=== PATIENT | male | born 1990 | race Caucasian/White ===

== ENCOUNTER 2016-10-10 09:13 | Emergency (ER) | payer MEDICAID, OTHER ==
[~2016-10-10] VITALS: Ht 188 cm; Wt 100.0 kg
[2016-10-10 09:14] VITALS: BP 133/74; PULSE 68; RESP 20; TEMP 98.4; O2SAT 97
--- NOTE | 2016-10-10 09:24 | PD ---
HPI Chief Complaint: Skin Problem Time Seen by Provider: 09:23 Travel History International Travel<30 days: No Contact w/Intl Traveler<30days: No Traveled to known affect area: No History of Present Illness HPI 25-year-old male with history of seizure disorder and history of MRSA , presents to the emergency Department with multiple sores and question abscess. Patient states she's been working at the [employer] last several days has developed some small tender pimple-like lesions to both lower extremities, as well as a questionable recurrent abscess to the upper buttock region. Patient has history of this in the past. He states he's had to have the cyst on his buttock drained in the past. Patient denies fever, chills, or other constitutional symptoms. Pain on the lesions is described as burning. He rates it as a 6/10. Patient has no known drug allergies. [facility] Social History Alcohol Use: No Tobacco Use: Yes Substance Use: No Allergies-Medications (Allergen,Severity, Reaction): Coded Allergies: No Known Allergies (Unverified , 10/10/16) Reported Meds & Prescriptions Reported Meds & Active Scripts Active Reported Keppra (Levetiracetam) 500 Mg Tab 500 Mg PO BID Review of Systems Except as stated in HPI: all other systems reviewed are Neg General / Constitutional: No: Fever Eyes: No: Visual changes HENT: No: Headaches Cardiovascular: No: Chest Pain or Discomfort Respiratory: No: Shortness of Breath Gastrointestinal: No: Abdominal Pain Genitourinary: No: Dysuria Musculoskeletal: No: Pain Skin: Positive Lesions (see history present illness.), No Rash Neurologic: No: Weakness Psychiatric: No: Depression Endocrine: No: Polydipsia Hematologic/Lymphatic: No: Easy Bruising Physical Exam Narrative GENERAL: Patient is in no acute distress. SKIN: Warm and dry. Normal color. Normal turgor. Patient has multiple small apparent folliculitis type lesions to the lower extremities, the largest one on the left lateral bravo which has an area of pus topically. No nasal lesions should have obvious abscesses apparent at this time. Patient also has a tender erythematous indurated area to the top of the left medial buttock consistent with recurrent pilonidal cyst. He states this is not is tenderness over the of the lesions on his legs. HEAD: Atraumatic. Normocephalic. EYES: Pupils equal and round. No scleral icterus. No injection or drainage. ENT: No nasal bleeding or discharge. Mucous membranes pink and moist. Pharynx is clear. Airway is patent. NECK: Trachea midline. Supple and nontender. CARDIOVASCULAR: Regular rate and rhythm. RESPIRATORY: No accessory muscle use. Clear to auscultation. Breath sounds equal bilaterally. MUSCULOSKELETAL: Extremities without clubbing, cyanosis, or edema. No obvious deformities. NEUROLOGICAL: Awake and alert. No obvious cranial nerve deficits. Motor grossly within normal limits. Five out of 5 muscle strength in the arms and legs. Normal speech. PSYCHIATRIC: Appropriate mood and affect; insight and judgment normal. Data Data Last Documented VS Vital Signs Date Time Temp Pulse Resp B/P Pulse Ox O2 Delivery O2 Flow Rate FiO2 10/10/16 09:14 98.4 68 20 133/74 97 Room Air Orders Wound Culture And Gram Stain (10/10/16 09:30) Sulfamet-Trimeth Ds 800-160 Mg (Bactrim (10/10/16 09:30) Cephalexin (Keflex) (10/10/16 09:30) Ibuprofen (Motrin) (10/10/16 09:30) Lidocai-Epi 1%-1:100,000 Inj (Xylocaine- (10/10/16 09:30) MDM Medical Decision Making Medical Screen Exam Complete: Yes Emergency Medical Condition: Yes Differential Diagnosis Cellulitis. Folliculitis. Abscess. Pilonidal Abscess. MRSA. Narrative Course Patient is medically stable at time of exam. I&D of pilonidal cyst is performed. See procedure note. Patient is given his first dose of Bactrim DS as well as Keflex 500 mg by mouth. Patient is given 800 mg ibuprofen by mouth. Patient will be continued on Bactrim DS twice a day 7 days. Patient is continued on Keflex 500 mg 3 times a day 7 days. Patient is given Bactroban ointment to be applied to the lesions twice daily after washing with soap and water. Patient is given ibuprofen 800 mg 3 times a day. With food when necessary #30. Patient follow-up in 2 days for a wound check and packing removal. Patient can follow-up sooner with worsening symptoms as needed. Procedures Procedure Narrative After the risks and benefits were discussed the following procedure was performed: INCISION AND DRAINAGE OF ABSCESS: The area was prepped and was sterilely draped. A subcutaneous wheal of 1% Xylocaine with epi with a total number for mL was used to anesthetize the area. The area was properly anesthetized. A number 11 scalpel was used to make a 1-cm incision across the area of the abscess. Cultures were obtained. The abscess was drained an irrigated with normal saline. Quarter inch iodoform packing was placed in the wound. Sterile dressing applied. Patient advised to have packing removed in two days. Diagnosis Primary Impression: Pilonidal cyst with abscess Additional Impression: Cellulitis Qualified Code: L03.90 - Cellulitis, unspecified cellulitis site Patient Instructions: Abscess Incision and Drainage (ED), General Instructions , MRSA (Methicillin Resistant Staphylococcus Aureus) (ED) Additional Instructions: I&D of pilonidal cyst is performed. Patient is given his first dose of Bactrim DS as well as Keflex 500 mg by mouth. Patient is given 800 mg ibuprofen by mouth. Patient will be continued on Bactrim DS twice a day 7 days. Patient is continued on Keflex 500 mg 3 times a day 7 days. Patient is given Bactroban ointment to be applied to the lesions twice daily after washing with soap and water. Patient is given ibuprofen 800 mg 3 times a day. With food when necessary #30. Patient follow-up in 2 days for a wound check and packing removal. Patient can follow-up sooner with worsening symptoms as needed. Med/Other Pt SpecificInfo: Prescription(s) given Disposition: 01 DISCHARGE HOME Condition: Stable Brendan Pop Oct 10, 2016 09:23
[2016-10-10] MEDS ORDERED: LEVE500 PO (09:28)
[2016-10-10] MEDS ORDERED: LIDOCAINE 1%/EPINEPHrine 1:100,000 SOLN 20 ML VIAL INFIL ONE (09:30)
[2016-10-10] MEDS ORDERED: SULFAMETHOXAZOLE-TRIMETHOPRIM DS 800-160 MG TAB PO ONE (09:30)
[2016-10-10] MEDS ORDERED: CEPHALEXIN MONOHYDRATE 500 MG CAP PO ONE (09:30)
[2016-10-10] MEDS ORDERED: IBUPROFEN 800 MG TAB PO ONE (09:30)
[2016-10-10] MEDS ORDERED: MUPI2%T TOPICAL (09:59)
[2016-10-10] MEDS ORDERED: CEPH500C PO (09:59)
[2016-10-10] MEDS ORDERED: BACT800T5 PO (09:59)
== END 2016-10-10 10:19 | disposition home or self-care (01) ==
LOC: NEPD 09:13
DX: L05.01 Pilonidal cyst with abscess (principal); B95.62 Methicillin resistant Staphylococcus aureus infection as the cause of diseases classified elsewhere
CPT/HCPCS: 10061; 86403; 87070; 87186